=== PATIENT | male | born 1965 | race Caucasian/White ===

== ENCOUNTER 2018-08-08 04:20 | Emergency (ER) | payer OTHER ==
[~2018-08-08] VITALS: Ht 162.6 cm; Wt 77.6 kg
[~2018-08-08 04:20] MED LIST: TOBRAMYCIN-DEXAM5 ML OP; ULTRAM 50MG TAB50 MG PO
[2018-08-08 05:14] LABS: ABSOLUTE BASOPHILS 0.1 thou/uL (0.0-0.2); ABSOLUTE EOSINOPHILS 0.1 thou/uL (0.0-0.7); ABSOLUTE LYMPHOCYTES 1.8 thou/uL (0.8-5.3); ABSOLUTE MONOCYTES 0.7 thou/uL (0.0-1.2); BASOPHILS 0.6 %; EOSINOPHILS 1.4 %; HEMATOCRIT 44.9 % (42.0-52.0); HEMOGLOBIN 15.2 gm/dL (14.0-18.0); LYMPHOCYTES 21.2 %; MCH 30.4 pg (26.0-34.0); MCHC 33.7 g/dL (28.0-37.0); MCV 90.2 fL (80.0-100.0); MONOCYTES 7.6 %; MPV 8.9 fl. (7.2-11.1); NUCLEATED RBCS 0 /100WBC; PLATELET COUNT* 232 thou/uL (150-400); POLYS 69.2 %; RBC 4.99 mil/uL (4.50-6.00); RDW-CV 14.1 % (10.5-14.5); WBC 8.6 thou/uL (4.0-11.0)
[2018-08-08 05:18] LABS: ANION GAP 13 mmol/L (7-16); BUN 13 mg/dL (7-18); CALCIUM 8.5 mg/dL (8.5-10.1); CHLORIDE 107 mmol/L (98-107); CO2 25 mmol/L (21-32); CREATININE 0.9 mg/dL (0.6-1.3); GLUCOSE 111 mg/dL (70-99); POTASSIUM 3.5 mmol/L (3.5-5.1); SODIUM 145 mmol/L (136-145)
[2018-08-08 05:20] LABS: PROTIME 10.7 Seconds (9.20-11.50)
[2018-08-08 05:33] LABS: ALBUMIN 3.7 g/dL (3.4-5.0); ALKALINE PHOSPHATASE 74 U/L (46-116); NT-PRO BRAIN NAT PEPTIDE 16 pg/mL (<300); SGOT 18 U/L (15-37); SGPT 32 U/L (30-65); TOTAL BILIRUBIN 0.4 mg/dL (<0.1-1.0); TOTAL PROTEIN 7.1 g/dL (6.4-8.2); TROPONIN-I LEVEL <0.06 ng/mL (<0.06)
[2018-08-08 07:09] VITALS: BP 114/80
--- NOTE | 2018-08-08 10:21 | EKG ---
[place] [address] ELECTROCARDIOGRAM REPORT Name: SAGAR MACK Room: [facility]#: [id number] Admission: 08/08/18 Attend Phys: Discharge: 08/08/18 Date of : 65 Report #: [id number] THIS REPORT FOR: //name// 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
--- NOTE | 2018-08-08 10:22 | EKG ---
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
== END 2018-08-08 07:09 | disposition home or self-care (01) ==
LOC: M.ERS 04:20
PROVIDERS: Emergency Medicine
DX: R06.00 Dyspnea, unspecified (principal); F17.220 Nicotine dependence, chewing tobacco, uncomplicated